=== PATIENT | male | born 1995 | race Caucasian/White ===

== ENCOUNTER 2020-12-18 13:09 | Inpatient (IN) | payer MEDICAID ==
[2020-12-17 20:00] VITALS: BP 112/58
[~2020-12-18] VITALS: Ht 172.7 cm; Wt 74.8 kg
[2020-12-18 13:15] VITALS: BP 128/76
--- NOTE | 2020-12-18 13:15 | NUR ---
PATIENT DIRECT ADMITTED FROM [facility] RECEIVED REPORT BY SANDRA ARORA. DENIED PAIN OR DISCOMFORT, STABLE GAIT AND SKIN IS INTACT SENSATION. RESPIRATORY EVEN AND UNLABORED IN ON ROOM AIR. SKIN IS WARN TO TOUCH, KEEP CLEAN/DRY AND INTACT. INFORMED MD THAT PATIENT IS HERE IN ROOM 306. CALL LIGHT WITHIN REACH, WILL CONTINUE TO MONITOR.
[2020-12-18 16:00] VITALS: BP 124/62
[2020-12-18] MEDS ORDERED: HYDROCODONE/APAP 5/325MG TABLET PO PRN (16:00)
[2020-12-18] MEDS ORDERED: ACETAMINOPHEN 325 MG TABLET PO PRN (16:00)
[2020-12-18] MEDS ORDERED: ZOLPIDEM TARTRATE 5 MG TABLET PO PRN (16:00)
[2020-12-18] MEDS ORDERED: ONDANSETRON HCL/PF 4 MG/2 ML VIAL IVP PRN (16:00)
[2020-12-18] MEDS ORDERED: MAGNESIUM HYDROXIDE 30 ML UDC PO PRN (16:00)
[2020-12-18] MEDS ORDERED: MAG HYDROX/AL HYDROX/SIMETH 30 ML UDC PO PRN (16:00)
[2020-12-18] MEDS ORDERED: AMOX500C2 PO (16:29)
[2020-12-18] MEDS ORDERED: ANESTHESIA TRAY IN PYXIS 1 EA TRAY MC ONE (16:55)
[2020-12-18] MEDS ORDERED: MIDAZOLAM HCL 2 MG/2ML VIAL ONE (17:33)
[2020-12-18] MEDS ORDERED: FAMOTIDINE/PF INJ 20 MG/2 ML VIAL IV ONE (17:34)
[2020-12-18 18:15] VITALS: BP 116/63
--- NOTE | 2020-12-18 18:37 | NUR ---
RN CLOSING NOTE PATIENT CAME BACK FROM EGD DETECTED GASTRITIS REPORTED BY PAD/OR, REMAINS AO X 4, DENIES DISTRESS. SKIN IS WARM TO TOUCH, KEEP CLEAN/DRY, INTACT IV SITE. RESPIRATORY EVEN AND UNLABORED ON ROOM AIR. KEPT ELEVATED HOB FOR ENSURE AIRWAY AND ASPIRATION PRECAUTION, ALSO LOWEST BED POSITION FOR SAFETY. PATIENT REFUSED CT OF HEAD, MENTIONED MD. CALL LIGHT WITHIN REACH, WILL ENDORSE SOCK TURNER
[2020-12-18 20:00] VITALS: BP 112/58
--- NOTE | 2020-12-18 20:00 | NUR ---
MS RN OPENING NOTE RECEIVED PT AWAKE IN BED. A/O X4. PT IS STABLE ON ROOM AIR. NO SOB NOTED. NO S/S OF RESPIRATORY DISTRESS. PT IS AMBULATORY WITH [facility]. PT HAS NO C/O PAIN AT THIS TIME. IV ACCESS IN LAC #20 HL. IV IS INTACT, PATENT, AND FLUSHING WELL. SAFETY MEASURES MAINTAINED. BED IN LOWEST LOCKED POSITION, HOB ELEVATED, SIDE RAILS UP X2. CALL LIGHT AND TABLE WITHIN REACH. WILL CONTINUE WITH PLAN OF CARE.
--- NOTE | 2020-12-18 21:56 | NUR ---
RECEIVED ORDERS FROM DR. SNYDER FOR PT TO HAVE MRI BRAIN WITH AND WITHOUT CONTRAST ON 12/19/20. ORDERS READ BACK AND CARRIED OUT. CHECKLIST AND CONSENT OBTAINED AND SIGNED BY PT. PT VERBALIZED UNDERSTANDING.
--- NOTE | 2020-12-19 06:15 | NUR ---
MS RN CLOSING NOTE PT IS AWAKE IN BED AT THIS TIME. A/O X4. PT IS STABLE ON ROOM AIR. NO SOB NOTED. NO S/S OF RESPIRATORY DISTRESS. PT IS AMBULATORY WITH BRP. PT HAS NO C/O PAIN AT THIS TIME. IV ACCESS IS INTACT, PATENT, AND FLUSHING WELL. ALL NEEDS HAVE BEEN MET. SAFETY MEASURES MAINTAINED AT ALL TIMES. BED IN LOWEST LOCKED POSITION, HOB ELEVATED, SIDE RAILS UP X2. CALL LIGHT AND TABLE WITHIN REACH. WILL ENDORSE TO ONCOMING NURSE FOR CONTINUITY OF CARE.
[2020-12-19 06:36] LABS: BASOPHILS % (AUTO) 0.5 % (0.0-2.0); EOSINOPHILS % (AUTO) 5.2 % (0.0-6.0); HEMATOCRIT 45 % (39-51); HEMOGLOBIN 15.3 g/dL (13.5-17.5); LYMPHOCYTES # (AUTO) 1.4 /CMM (0.8-4.8); LYMPHOCYTES % (AUTO) 18.7 % (20.0-44.0); MEAN CORPUSCULAR HGB CONC 34 g/dl (31.0-36.0); MEAN CORPUSCULAR VOLUME 93 fL (80-96); MONOCYTES # (AUTO) 0.6 /CMM (0.1-1.30); MONOCYTES % (AUTO) 7.5 % (2.0-12.0); NEUTROPHILS # (AUTO) 5.1 /CMM (1.8-8.9); NEUTROPHILS % (AUTO) 68.1 % (43.0-81.0); PLATELET COUNT (AUTO) 300 /CMM (150-450); RED BLOOD CELL COUNT(AUTO) 4.79 MIL/uL (4.5-6.0); WHITE BLOOD COUNT (AUTO) 7.5 K/uL (4.3-11.0)
[2020-12-19 06:48] LABS: CREATININE 1.1 mg/dL (0.6-1.3); MAGNESIUM 2.2 mg/dL (1.8-2.4); PHOSPHORUS 4.2 mg/dL (2.5-4.9); POTASSIUM 4.9 mmol/L (3.5-5.1)
[2020-12-19 06:55] LABS: THYROID STIMULATING HORMONE 1.227 uIU/mL (0.358-3.74)
[2020-12-19] MEDS ORDERED: PANTOPRAZOLE 40 MG TABLET.DR PO SCH (07:30)
--- NOTE | 2020-12-19 07:37 | NUR ---
MS RN OPENING NOTE RECEIVED PATIENT LYING IN BED, AWAKE, WATCHING TV. A/O X4. ON ROOM AIR - TOLERATING WELL. NO SOB NOTED. NO DISTRESS NOTED. NO C/O PAIN AT THIS TIME. IV ACCESS TO LEFT AC #20 - INTACT AND PATENT, SALINE LOCKED. SAFETY MEASURES MAINTAINED AT ALL TIMES. BED IN LOWEST LOCKED POSITION. CALL LIGHT WITHIN REACH. WILL CONTINUE TO MONITOR.
[2020-12-19 08:00] VITALS: BP 136/70
[2020-12-19] MEDS ORDERED: GADOTERATE MEGLUMINE 5 MMOL/10 ML VIAL IV ONE (11:39)
--- NOTE | 2020-12-19 13:40 | NUR ---
MS SCRUB WHEEL OPERATOR NOTE PATIENT DISCHARGED VIA PRIVATE CAR @ [id number]. PATIENT STABLE, A/O X4. NO PAIN NOTED. NO DISTRESS AT THIS TIME. ALL EXITCARE EDUCATION GONE OVER WITH PATIENT. PATIENT VERBALIZED UNDERSTANDING. PATIENT EDUCATION AND DISCHARGE INSTRUCTIONS GIVEN TO PATIENT, ALONG WITH AMOXICILLIN PHYSICAL MEDICATION (PATIENT OWN MEDICATION). IV REMOVED AND WRISTBAND REMOVED. PATIENT WAS ACCOMPANIED TO THE LOBBY BY NICCI HERNANDEZ. PATIENT LEFT WITH MOTHER AND SISTER.
== END 2020-12-19 13:38 | disposition home or self-care (01) | DRG 241 ==
LOC: MED 13:09
PROC: 0DB68ZX Excision of Stomach, Via Natural or Artificial Opening Endoscopic, Diagnostic (ICD-10-PCS; principal; 2020-12-18)
DX: K29.70 Gastritis, unspecified, without bleeding (principal); R13.19 Other dysphagia; R20.2 Paresthesia of skin
CPT/HCPCS: 36415; 70553-TC; 71045-TC; 80048-TC; 80061-TC; 83735-TC; 84100-TC; 84443-TC; 85025-TC; 87081-TC; 92526; 92611-TC; A9575; G0378; J2250; J2405; J2704; J3490